=== PATIENT | female | born 1930 | race African-American/Black ===

== ENCOUNTER 2018-01-15 15:16 | Inpatient (IN) | payer OTHER ==
[~2018-01-15] VITALS: Ht 182.9 cm; Wt 95.3 kg
--- NOTE | ~2018-01-15 | EKG ---
[place] [address] [facility] [place] [address] ELECTROCARDIOGRAM REPORT Name: BETTYE FERNANDEZMADDIE Room #: 351-P ADM IN M.R.#: [id number] Admission: 01/15/18 Attend Phys: Aung Gray MD Discharge: Date of : [birth year] Report #: [id number] THIS REPORT FOR: //name// [facility] ED Test Date: 2018-01-15 Test Time: 17:19:58 Pat Name: MADDIE FERNANDEZ Department: Room: Gender: F Quarter Supervisor: Carla PALOMINO : 1930 Requested By: Ross Mcmahon Order Number: [id number] MD: Kevin Beckham Measurements Intervals [place] Rate: 64 P: 10 MD: 167 QRS: -69 QRSD: 159 T: 58 QT: 443 QTc: 457 Interpretive Statements Sinus rhythm Right bundle branch block Inferior infarct, old No previous ECG available for comparison Electronically Signed On 01-18-2018 9:38:19 CDT by Kevin Beckham [email or web address] <ELECTRONICALLY SIGNED> By: Kevin Beckham MD, [facility] 01/18/18 0938 D: [id number] 18 Kevin Beckham MD, FACC /EPI
--- NOTE | ~2018-01-15 | HC ---
[facility] [place] [address] CONSULTATION Name: MADDIE FERNANDEZ Room #: 351-P [facility] IN M.R.#: [id number] Admission: 01/15/18 Attend Phys: Aung Gray MD Discharge: Date of : [birth year] Report #: [id number] THIS REPORT FOR: //name// CC: Aung Gray Huber Akkulugari DATE OF SERVICE: 01/18/2018 CHIEF COMPLAINT: Gluteal ulceration. HISTORY OF PRESENT ILLNESS: This is an 87-year-old female patient admitted to the hospital with diminished mental status. She was recently hospitalized at [facility]. She cannot provide a lot of information about herself. I was asked to see her regarding a gluteal ulceration. She states that that has been present for greater than 40 years, but cannot remember the origin of it. PAST MEDICAL HISTORY: Positive for COPD, recent bacteremia, encephalopathy, dementia, hypertension, hyperlipidemia. ALLERGIES: None. MEDICATIONS: Include Celexa, iron, Bactrim, Lipitor, Lopressor, Advair, Colace, MiraLax. SOCIAL HISTORY: Unknown. FAMILY HISTORY: Unknown. REVIEW OF SYSTEMS: Unobtainable due to the patient's level of consciousness. PHYSICAL EXAMINATION: VITAL SIGNS: At this time include pulse 64, respirations 20, blood pressure 124/54, temperature 97.5. GENERAL: This is a chronically ill-appearing female patient, appears to be in minimal discomfort. HEENT: Head normocephalic. Nose and throat are clear. NECK: Supple. LUNGS: Diminished. HEART: Regular rhythm. ABDOMEN: Soft. Bowel sounds are present. SKIN: Examination of the gluteal region demonstrates what appears to be evidence of a previous abscess in the left gluteal region that measures approximately 2 cm in depth and approximately 1 x 1 cm in external dimension. It is unclear as to whether this has had a previous incision and debridement at some point in time, the base is relatively clean. There is no exposure of deep structures. [address] [address] CONSULTATION Name: MADDIE FERNANDEZ Room [facility]: 351[facility] IN ..#: [id number] Admission: 01/15/18 Attend Phys: Aung Gray MD Discharge: Date of : [birth year] Report #: [id number] NEUROLOGIC: The patient has symmetrical movement. LABORATORY DATA: Includes sodium 146, potassium 4.8, chloride 110, CO2 of 19, BUN 15, creatinine 1.0, glucose 65. Albumin is low at 2.7. White blood cell count is low at 2.9 with a hemoglobin of 8.0. CLINICAL IMPRESSION: Left gluteal wound, possibly due to prior abscess. RECOMMENDATIONS: At this point in time, she will need a packing with silver alginate and then covering with a bordered foam dressing to be changed Thursday, Thursday, Thursday and as needed. I think this will likely . She will need aggressive nutritional support to maximize wound healing. Recommend continuing current medications and turning and repositioning while in bed. I appreciate being asked to see her in consultation. <ELECTRONICALLY SIGNED> By: Du Dubon MD 01/19/18 1017 1829 [id number] Du Dubon MD /nt
--- NOTE | ~2018-01-15 | HC ---
[facility] [place] [address] CONSULTATION Name: MADDIE PARK Room #: 351-P [facility] IN M.R.#: [id number] Admission: 01/15/18 Attend Phys: Aung Gray MD Discharge: Date of : [birth year] Report #: [id number] THIS REPORT FOR: //name// CC: Aung Ngo Akkulugari DATE OF SERVICE: 01/16/2018 CONSULTATION: Infectious diseases. HISTORY OF PRESENT ILLNESS: Lilli Park is an 87-year-old female transferred from [facility] to [facility] today because of depressed mental status, with more confusion and difficulty in controlling the patient. This was associated with fatigue and some dyspnea. The patient was at [facility] for about 30 days for bacteremia and pneumonia. She was discharged to the intermediate and was there for about a week before she returned to acute care, The patient was packing her suitcase because she felt she had to go someplace. She was transferred to the hospital and admitted with pneumonia and pleural effusion. She continued to have difficult behavior. PAST MEDICAL HISTORY: Significant for COPD associated with long-term tobacco use. The patient has a history of hypertension, hyperlipidemia, pacemaker implantation and dementia. MEDICATION RECONCILIATION: The patient's current medication list includes nicotine 14 mg daily, vancomycin 1250 mg IV every 12 hours, citalopram 10 mg daily, atorvastatin 20 mg daily, iron 325 mg daily, enoxaparin 40 mg at bedtime, metoprolol 50 mg b.i.d., ipratropium 3 mL inhalation q.4h., furosemide 40 mg IV x 1, MiraLax 17 g daily p.r.n., ondansetron 4 mg IV p.r.n. and alprazolam 0.5 mg one-time dose. FAMILY HISTORY: Noncontributory. SOCIAL HISTORY: The patient comes from a intermediate. She says she smoked her whole life until about 1 month ago. This corresponds when she came in to the hospital. There is a son, Jerry Park, phone number, [phone] (cell phone), but he was unable to give much more history other than she had some kind of bacteremia. The intermediate medication administration sheet notes the patient has been on cefazolin and has a date of 01/08/2018, presumably the start date when she came to the intermediate as well as oral Bactrim. REVIEW OF SYSTEMS: Unremarkable. The patient says she was short of breath, but this has markedly improved since the thoracentesis. She denies any pain. She denies any head or neck complaints. She feels her mental status is fine. She denies any cough or sputum production. She denies pain in the chest. She [address] [address] CONSULTATION Name: MADDIE PARK Room #: 351-P [facility] IN M.R.#: [id number] Admission: 01/15/18 Attend Phys: Aung Gray MD Discharge: Date of : [birth year] Report #: [id number] denies nausea, vomiting, diarrhea, constipation. She denies urinary complaints. She complains of numbness in her fingers to the point where it is difficult to do anything. PHYSICAL EXAMINATION: GENERAL: The patient appears her stated age, somewhat confused, but verbal, comfortable, not in any distress. VITAL SIGNS: Normal. The patient is afebrile. SKIN: Shows a small ulcer on the buttock and the left cheek. This apparently has significant tunneling. ENT: Unremarkable. HEART: Heart sounds S1, S2. CHEST: Breath sounds are clear anteriorly. ABDOMEN: Belly is soft, not tender. EXTREMITIES: Unremarkable. LABORATORY DATA: White count is 5.0, hemoglobin 8.3, hematocrit 26%, platelets 159,000. Electrolytes, BUN and creatinine are normal. Thoracentesis was performed and approximately 2 liters of fluid was evacuated. It had a white cell count of 674 cells/mL. The chest x-ray shows right lower lobe with pleural effusion. IMPRESSION: Recent hospitalization, reportedly for bacteremia, now on IV antibiotics at the intermediate. She presents with increased confusion, fatigue and has an infiltrate with effusion, which appears to be transudative. At this point, I think we need to obtain the records from [facility] to see what they were treating, what their treatment plan was as well as how much diagnostic workup was performed. The patient is significantly anemic. We should check liver function tests. We can repeat cultures. For now, we will continue broad spectrum antibiotic therapy that has been started on the ER until further information and cultures become available. After the weekend,we may want to arrange transfer to [facility] for continuity of care. <ELECTRONICALLY SIGNED> By: Nate Low MD 01/17/18 2257 2219 225 Nate Low MD /nt
--- NOTE | ~2018-01-15 | PATH ---
[facility] [address] [place] [address] PATHOLOGY RPT PROCEDURE Name: MADDIE FERNANDEZ Room #: 351-P ADM IN M.R.#: [id number] Admission: 01/15/18 Date of : [birth year] Discharge: Report #: [id number] Path Case #: [id number] Note [facility] Accession Number: [id number] TESTS RESULT FLAG UNITS REF RANGE LAB Clinician Provided Cytology Information No. of containers..01 Other (Miscellaneous) Source: 01 CHEST FLUID DIAGNOSIS: 02 CHEST FLUID NEGATIVE FOR MALIGNANT CELLS. REACTIVE MESOTHELIAL CELLS ARE PRESENT. THIS INTERPRETATION INCLUDES EVALUATION OF A CELL BLOCK. MIXED ACUTE AND CHRONIC INFLAMMATORY CELLS PRESENT. Signed out by: 02 Tierney Kelley MD, Pathologist NPI- [id number] Performed by: 03 Pratibha Haley, Machine Heel Seat Fitter ([facility]) Gross description: 01 16ML, YELLOW, CLOUDY /LCS FLAG LEGEND: L-Low Normal,H-High Normal,LL-Alert Low,HH-Alert High <-Panic Low,>-Panic High,A-Abnormal,AA-Critical Abnormal Performed at: [address] [place] [address] Juan Harper MD, [address] [address] Tierney Kelley MD, 03 [facility] [address] [address] Juan Luke MD, Performed at: [address], [place], [place] [id number] MD Juan Harper MD Phone: [phone]
[2018-01-15 15:18] VITALS: BP 150/60
[2018-01-15 15:59] LABS: BASOPHILS 1.3 % (0.0-2.0); EOSINOPHILS 1.1 % (0.0-3.0); HEMATOCRIT 22.2 % (37.0-47.0); HEMOGLOBIN 7.3 gm/dL (12.0-15.0); LYMPHOCYTES 10.6 % (24.0-44.0); MCH 26.9 pg (26.0-34.0); MCHC 33.2 g/dL (28.0-37.0); MCV 81.1 fL (80.0-100.0); MONOCYTES 5.1 % (1.0-8.0); PLATELET COUNT 182 thou/uL (150-400); POLYS 81.9 % (36.0-66.0); RBC 2.73 mil/uL (4.20-5.00); RDW 16.5 % (10.5-14.5); WBC 3.7 thou/uL (4.0-11.0)
[2018-01-15 16:09] LABS: ANION GAP 5 mmol/L (7-16); BUN 12 mg/dL (7-18); CALCIUM 8.7 mg/dL (8.5-10.1); CHLORIDE 103 mmol/L (98-107); CO2 28 mmol/L (21-32); CREATININE 0.8 mg/dL (0.6-1.0); GLUCOSE 110 mg/dL (74-106); SODIUM 136 mmol/L (136-145)
[2018-01-15 16:17] LABS: ALBUMIN 2.7 g/dL (3.4-5.0); SGOT 14 U/L (15-37); SGPT 11 U/L (30-65); TOTAL BILIRUBIN 0.3 mg/dL (<0.1-1.0); TOTAL PROTEIN 5.2 g/dL (6.4-8.2); TROPONIN-I <0.06 ng/mL (<0.06)
[2018-01-15] MEDS ORDERED: IRON325 PO (16:27)
[2018-01-15] MEDS ORDERED: CELEXA10 MG PO (16:27)
[2018-01-15] MEDS ORDERED: BACTRIM DS TAB1 EACH PO (16:27)
[2018-01-15] MEDS ORDERED: LOPRESSOR50 PO (16:28)
[2018-01-15] MEDS ORDERED: LIPITOR 20 MG T20 M1 PO (16:28)
[2018-01-15] MEDS ORDERED: ADVAIR HFA 230M12 GM INH (16:28)
[2018-01-15] MEDS ORDERED: COLACE100 MG PO (16:28)
[2018-01-15] MEDS ORDERED: MIRALAX17 GM PO (16:28)
[2018-01-15 17:39] VITALS: BP 135/66
[2018-01-15 17:56] VITALS: BP 150/57
[2018-01-15 18:31] VITALS: BP 156/64
[2018-01-15 19:55] VITALS: BP 146/64
[2018-01-16 04:00] VITALS: BP 133/66
[2018-01-16 07:37] VITALS: BP 155/50
[2018-01-16 11:20] LABS: HEMATOCRIT 26.6 % (37.0-47.0); HEMOGLOBIN 8.3 gm/dL (12.0-15.0); MCH 26.5 pg (26.0-34.0); MCHC 31.2 g/dL (28.0-37.0); MCV 84.9 fL (80.0-100.0); RBC 3.14 mil/uL (4.20-5.00); RDW 16.9 % (10.5-14.5)
[2018-01-16 11:26] LABS: POTASSIUM 3.7 mmol/L (3.5-5.1)
[2018-01-16 11:30] LABS: INR 1.1; PROTIME 11.4 Seconds (9.3-11.4)
[2018-01-16 11:32] VITALS: BP 107/80
[2018-01-16 13:39] LABS: CLARITY HAZY; COLOR YELLOW; SOURCE CHEST; TOTAL VOLUME 65 mL
[2018-01-16 14:00] LABS: BF NUCLEATED CELLS 674; BF RBC 1414
[2018-01-16 15:29] VITALS: BP 133/39
[2018-01-16 15:29] LABS: BF NEUTROPHILS 50
[2018-01-16 15:30] LABS: BF MACROPHAGE 26
[2018-01-16 19:30] VITALS: BP 125/56
[2018-01-17 04:10] VITALS: BP 132/50
[2018-01-17 06:47] LABS: SOURCE CHEST
[2018-01-17 08:18] VITALS: BP 83/62
[2018-01-17 11:05] LABS: BODY FLUID ALBUMIN 1.5 g/dL (()); BODY FLUID AMYLASE 14 U/L (()); BODY FLUID GLUCOSE 112 mg/dL (()); BODY FLUID LDH 79 IU/L (()); BODY FLUID PROTEIN 2.2 g/dL (())
[2018-01-17 15:07] VITALS: BP 119/86
[2018-01-17 15:13] LABS: HEMATOCRIT 25.1 % (37.0-47.0); MCH 26.5 pg (26.0-34.0); MCHC 31.7 g/dL (28.0-37.0); MCV 83.5 fL (80.0-100.0); RBC 3.01 mil/uL (4.20-5.00); RDW 16.5 % (10.5-14.5); WBC 2.9 thou/uL (4.0-11.0)
[2018-01-17 15:26] LABS: CALCIUM 9.3 mg/dL (8.5-10.1); POTASSIUM 4.8 mmol/L (3.5-5.1)
[2018-01-17 17:22] VITALS: BP 111/51
[2018-01-17 19:29] VITALS: BP 123/60
[2018-01-18 00:48] LABS: URINE BILIRUBIN NEGATIVE (Negative); URINE BLOOD TRACE (Negative); URINE CLARITY CLEAR; URINE COLOR YELLOW; URINE GLUCOSE-RANDOM* NEGATIVE (Negative); URINE KETONES NEGATIVE (Negative); URINE LEUKOCYTES 1+ (Negative); URINE NITRITE NEGATIVE (Negative); URINE PROTEIN (DIPSTICK) NEGATIVE (Negative); URINE UROBILINOGEN 0.2 E.U./dl (0.2-1.0)
[2018-01-18 01:01] LABS: BACTERIA None Seen /HPF (None Seen); CASTS None Seen /LPF (None Seen); CRYSTALS None Seen /LPF (None Seen); MUCUS None Seen strn/LPF (None Seen); SQUAMOUS 0-3 Few /LPF (0-3); URINE RBC None Seen /HPF (0-2); URINE WBC 0-5 Rare /HPF (0-5)
[2018-01-18 03:36] VITALS: BP 130/50
[2018-01-18 07:39] VITALS: BP 128/50
[2018-01-18 11:41] VITALS: BP 124/54
[2018-01-18 19:58] VITALS: BP 104/58
[2018-01-19 03:52] VITALS: BP 97/45
[2018-01-19 07:23] LABS: ABSOLUTE NEUTROPHILS 2.3 thou/uL (1.4-8.2); BASOPHILS 2.5 % (0.0-2.0); EOSINOPHILS 4.3 % (0.0-3.0); HEMATOCRIT 24.1 % (37.0-47.0); HEMOGLOBIN 7.8 gm/dL (12.0-15.0); LYMPHOCYTES 18.4 % (24.0-44.0); MCH 26.5 pg (26.0-34.0); MCHC 32.3 g/dL (28.0-37.0); MCV 82.1 fL (80.0-100.0); MONOCYTES 8.9 % (1.0-8.0); PLATELET COUNT 180 thou/uL (150-400); POLYS 65.9 % (36.0-66.0); RBC 2.93 mil/uL (4.20-5.00); RDW 16.8 % (10.5-14.5); WBC 3.5 thou/uL (4.0-11.0)
[2018-01-19 07:55] LABS: ANION GAP 7 mmol/L (7-16); BUN 10 mg/dL (7-18); CALCIUM 8.5 mg/dL (8.5-10.1); CHLORIDE 109 mmol/L (98-107); CHOLESTEROL 98 mg/dL (<200); CO2 27 mmol/L (21-32); CREATININE 0.8 mg/dL (0.6-1.0); GLUCOSE 113 mg/dL (74-106); HDL CHOLESTEROL 43 mg/dL (>40); LDL CHOLESTEROL 46 mg/dL (<100); POTASSIUM 3.8 mmol/L (3.5-5.1); SODIUM 143 mmol/L (136-145); TC:HDL 2.3 Ratio (Not establshd); TRIGLYCERIDE 48 mg/dL (<150); VLDL 10 mg/dL (<40)
[2018-01-19 08:01] VITALS: BP 117/62
[2018-01-19 11:34] VITALS: BP 112/53
[2018-01-19 15:04] VITALS: BP 128/55
[2018-01-19 19:20] VITALS: BP 133/63
[2018-01-20 04:11] VITALS: BP 141/61
[2018-01-20 05:08] LABS: HEMATOCRIT 23.4 % (37.0-47.0); HEMOGLOBIN 7.5 gm/dL (12.0-15.0); MCH 26.5 pg (26.0-34.0); MCHC 32.2 g/dL (28.0-37.0); MCV 82.2 fL (80.0-100.0); RBC 2.84 mil/uL (4.20-5.00); RDW 16.4 % (10.5-14.5); WBC 2.6 thou/uL (4.0-11.0)
[2018-01-20 05:18] LABS: CALCIUM 8.6 mg/dL (8.5-10.1); CREATININE 0.9 mg/dL (0.6-1.0); POTASSIUM 3.5 mmol/L (3.5-5.1)
[2018-01-20 07:46] VITALS: BP 132/56
[2018-01-20 11:06] VITALS: BP 126/62
[2018-01-20 15:25] VITALS: BP 127/61
[2018-01-20] MEDS ORDERED: LASIX 20 MG TAB20 MG PO (16:27)
== END 2018-01-20 16:55 | DRG 871 ==
LOC: ER 15:16 → EROBS 16:49 → 3W 16:49
PROVIDERS: Emergency Medicine; Hospitalist; Nurse Practitioner Family; Specialist
PROC: 0W993ZZ Drainage of Right Pleural Cavity, Percutaneous Approach (ICD-10-PCS; principal; 2018-01-17)
DX: A41.9 Sepsis, unspecified organism (principal); J96.21 Acute and chronic respiratory failure with hypoxia; G93.41 Metabolic encephalopathy; J18.9 Pneumonia, unspecified organism; J90 Pleural effusion, not elsewhere classified; F03.90 Unspecified dementia, unspecified severity, without behavioral disturbance, psychotic disturbance, mood disturbance, and anxiety; J44.9 Chronic obstructive pulmonary disease, unspecified; Y95 Nosocomial condition; I10 Essential (primary) hypertension; M62.84 Sarcopenia; F32.9 Major depressive disorder, single episode, unspecified; E55.9 Vitamin D deficiency, unspecified; E53.8 Deficiency of other specified B group vitamins; D64.9 Anemia, unspecified; E78.5 Hyperlipidemia, unspecified; Z95.0 Presence of cardiac pacemaker; Z79.51 Long term (current) use of inhaled steroids; Z79.899 Other long term (current) drug therapy
CPT/HCPCS: 10879